=== PATIENT | female | born 1955 | race Caucasian/White ===

== ENCOUNTER 2021-09-18 09:02 | Outpatient (CLI) | payer MEDICARE | END 2021-09-18 09:03 | disposition home or self-care (01) | LOC: CSHMAMMO 09:02 | PROVIDERS: ATTEND Family Medicine | DX: Z12.31 Encounter for screening mammogram for malignant neoplasm of breast (principal); M85.80 Other specified disorders of bone density and structure, unspecified site | CPT/HCPCS: 77063; 77067; 77080 ==

== ENCOUNTER 2022-02-06 04:19 | Emergency (ER) | payer MEDICARE ==
[2022-02-06] MEDS ORDERED: predniSONE 20 MG TAB ONE (04:37)
[2022-02-06] MEDS ORDERED: Famotidine 20 MG TAB ONE (04:38)
== END 2022-02-06 04:42 | disposition home or self-care (01) ==
LOC: CSHERS 04:19
DX: R21 Rash and other nonspecific skin eruption (principal)
CPT/HCPCS: 99282; J7512

== ENCOUNTER 2022-10-18 13:40 | Outpatient (CLI) | payer MEDICARE | END 2022-10-18 13:41 | disposition home or self-care (01) | LOC: CSHMAMMO 13:40 | PROVIDERS: ATTEND Family Medicine | DX: Z12.31 Encounter for screening mammogram for malignant neoplasm of breast (principal); R92.1 Mammographic calcification found on diagnostic imaging of breast; Z91.89 Other specified personal risk factors, not elsewhere classified | CPT/HCPCS: 77063; 77067 ==

== ENCOUNTER 2023-10-31 08:17 | Outpatient (CLI) | payer MEDICARE ==
[2023-10-31] MEDS ORDERED: Iopamidol 300 61% 100 ML VIAL FS ONE (13:17)
== END 2023-10-31 08:18 | disposition home or self-care (01) ==
LOC: CSHCT 08:17
PROVIDERS: ATTEND Urology
DX: N39.46 Mixed incontinence (principal); R31.29 Other microscopic hematuria; Z98.890 Other specified postprocedural states; N95.2 Postmenopausal atrophic vaginitis; N20.0 Calculus of kidney
CPT/HCPCS: 74178; 82565

== ENCOUNTER 2023-11-07 08:36 | Outpatient (CLI) | payer MEDICARE | END 2023-11-07 08:37 | disposition home or self-care (01) | LOC: CSHMAMMO 08:36 | PROVIDERS: ATTEND Family Medicine | DX: Z12.31 Encounter for screening mammogram for malignant neoplasm of breast (principal); Z91.89 Other specified personal risk factors, not elsewhere classified | CPT/HCPCS: 77063; 77067 ==